=== PATIENT | female | born 1985 | race Caucasian/White ===

== ENCOUNTER 2018-07-30 22:13 | Emergency (ER) | payer OTHER ==
[2018-07-30 22:19] VITALS: BP 104/74; PULSE 84; TEMP 98; BMI 35.7
[2018-07-30] MEDS ORDERED: DIPHTH,PERTUSS(ACELL),TET 0.5 ML DISP.SYRIN IM ONE (22:29)
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
== END 2018-07-30 22:58 | disposition home or self-care (01) ==
LOC: JERFT 22:13
PROC: 3E0234Z Introduction of Serum, Toxoid and Vaccine into Muscle, Percutaneous Approach (ICD-10-PCS; principal; 2018-07-30)
DX: S60.472A Other superficial bite of right middle finger, initial encounter (principal); S60.474A Other superficial bite of right ring finger, initial encounter; W50.3XXA Accidental bite by another person, initial encounter; Y93.F9 Activity, other caregiving; Y92.198 Other place in other specified residential institution as the place of occurrence of the external cause; Y99.0 Civilian activity done for income or pay
CPT/HCPCS: 73140-TC-RT-FY; 90715; 99281-25

== ENCOUNTER 2019-08-06 13:48 | Day surgery (SDC) | payer OTHER ==
[2019-08-06 14:28] VITALS: BMI 36.6
[2019-08-06] MEDS ORDERED: SODIUM CHLORIDE 2,994 ML IV ONE (14:37)
[2019-08-06] MEDS ORDERED: ACETAMINOPHEN INJECTION 100 ML IVPB ONE ×2 (15:02→16:48)
[2019-08-06 15:09] LABS: BASO % 0.4 % (0-2.0); EOS % 0.2 % (0-4.5); HEMATOCRIT 29.6 % (32.4-45.2); HEMOGLOBIN 10.1 GM/dL (10.7-15.3); LYMPH % 10.4 % (8-40); MCH 30.2 pg (25.7-33.7); MCHC 34.3 g/dl (32.0-36.0); MEAN PLT VOLUME 9.1 fl (7.5-11.1); MONO % 4.2 % (3.8-10.2); NEUT % 84.8 % (42.8-82.8); PLATELET COUNT 239 K/MM3 (134-434); RBC 3.36 M/mm3 (3.60-5.2); RDW 12.6 % (11.6-15.6)
[2019-08-06 15:21] LABS: INR 1.18 (0.83-1.09)
[2019-08-06 15:21] LABS: EPI CELLS 13.7 /HPF (0-5/HPF); URINE APPEARANCE CLEAR; URINE BILIRUBIN NEGATIVE (NEGATIVE); URINE COLOR YELLOW; URINE GLUCOSE (UA) NEGATIVE (NEGATIVE); URINE KETONE 1+ (NEGATIVE); URINE LEUK ESTERASE NEGATIVE (NEGATIVE); URINE NITRITE NEGATIVE (NEGATIVE); URINE PROTEIN TRACE (NEGATIVE); URINE WBC 5 /hpf (0-5)
--- NOTE | 2019-08-06 15:21 | PDOC ---
Documentation entered by Cece Ramon SCRIBE, acting as scribe for Norma Vazquez MD. Norma Vazquez MD: This documentation has been prepared by the michelleeYenny Adrianna, SCRIBE, under my direction and personally reviewed by me in its entirety. I confirm that the documentation accurately reflects all work, treatment, procedures, and medical decision making performed by me. History of Present Illness - General Chief Complaint: SIRS, Suspected/Possible Stated Complaint: Pain History Source: Patient Exam Limitations: No Limitations - History of Present Illness Initial Comments: 33 y.o female, no PMH, presenting with vaginal bleeding and diffuse abdominal pain. Patient notes she has had her period since last week (typically lasts for 4-5 days, but has been going on for over a week), which was originally brown in color but is now dark red and heavy in duration, lasting longer than her usual cycle, still currently menstruating. Patient denies any vaginal odor, but notes urinary hesitancy (feels the urge to go but cannot produce urine). She notes she developed some light abdominal cramping last night, which became diffuse and unbearable today. Her pain is exacerbated with any movement, and notes she was only able to eat chocolate almonds today. Patient reports one episode of loose stool, nausea, and NBNB vomit. She endorses neck pain, dizziness, chills, and feeling dehydrated while in the ED. +sexually active. has 2 prior pregnancies and live births, no ectopics or PID/STD No sick contacts or travel. No new changes in medications. No suspicious food intake. Allergies: None Past Medical History/PSH: none Social history: Lives with family. No tobacco, ETOH or drug use. Meds: as documented in EMR Family history: noncontributory PMD: Dr. Sims HOOD FITTER: Dr Ashley Review of systems Constitutional: +Chills. +sweats. no fevers. No weakness HEENT:+Dizziness. no headache. No congestion. No visual/hearing disturbances. CVS: no cp or syncope. Resp: no sob. No cough. Gastrointestinal: +Diffuse abdominal pain and cramping +Nausea. +One episode of NBNB vomit. +1 episode of diarrhea. Genitourinary: +Urinary hesitancy. +Prolonged menstrual cycle, that is heavy and dark red in color. no hematuria. MUSCULOSKELETAL: +Neck pain. No joint pain and swelling. No back pain. SKIN: no redness or skin changes, no discharge, no rash. No wounds. Hematologic: no easy bruising/bleeding. NEUROLOGIC: No headache, dizziness, LOC or altered mental status. No weakness, numbness or tingling. Psych: no anxiety or depression Allergic/Immunologic: no allergies All other systems reviewed and negative, or as documented in HPI. Physical exam General: mild distress 2/2 pain. HEENT: NCAT, PERRL, EOMI, clear conjunctiva, anicteric, moist mucus membranes, clear oropharynx, no oral lesions.. Neck: neck supple, FROM Resp: CTAB, normal and even respirations, no respiratory distress CVS: RRR, no murmurs, 2+ peripheral pulses throughout, no peripheral edema Abdomen: +Suprapubic ttp. soft, +rebound +guarding. No CVAT. Back: nontender, normal inspection and ROM MSK: no edema, DURON x4, ROM intact. No clubbing or cyanosis. normal bulk and tone. Extremities: no calf tenderness Neuro: alert, oriented appropriately; no focal neurologic deficits Psych: Calm and cooperative Skin: +Diaphoretic. +Moist and cool to touch. +Faint ecchymosis on the abdomen ( secondary to Victoza shots for weight loss). skin pallor. 08/06/19 15:19 08/06/19 15:55 Past History - Past Medical History Allergies/Adverse Reactions: Allergies Allergy/AdvReac Type Severity Reaction Status Date / Time No Known Allergies Allergy Verified 08/06/19 14:24 Home Medications: Ambulatory Orders Liraglutide [Victoza -] 1.8 mg SQ DAILY@0700 08/06/19 Asthma: No Cancer: No Cardiac Disorders: No COPD: No Diabetes: No HTN: No Seizures: No Thyroid Disease: No - Surgical History Cholecystectomy: Yes - Immunization History Immunization Up to Date: Yes - Psycho Social/Smoking Cessation Hx Smoking History: Never smoked Have you smoked in the past 12 months: No Hx Alcohol Use: No Drug/Substance Use Hx: No Substance Use Type: None Hx Substance Use Treatment: No *Physical Exam - Vital Signs Last Vital Signs Temp Pulse Resp BP Pulse Ox 97.4 F L 70 20 71/51 L 100 08/06/19 14:15 08/06/19 14:20 08/06/19 14:20 08/06/19 14:20 08/06/19 14:20 Heart Score/ECG Review #1 ECG reviewed & interpreted by me at: 14:20 General ECG Interpretation: Sinus Rhythm, Normal Rate, Normal Intervals Compared to previous ECG there are: Previous ECG unavail ED Treatment Course - LABORATORY CBC & Chemistry Diagram: 08/06/19 15:00 08/06/19 14:34 - ADDITIONAL ORDERS Additional order review: Laboratory Results 08/06/19 08/06/19 15:00 14:19 POC Glucometer 110 Urine HCG, Qual Positive 08/06/19 08/06/19 15:00 14:19 RBC 3.36 L MCV 88.0 MCHC 34.3 RDW 12.6 D MPV 9.1 Neutrophils % 84.8 H Lymphocytes % 10.4 Monocytes % 4.2 Eosinophils % 0.2 Basophils % 0.4 POC Glucometer 110 Medical Decision Making - Critical Care Time Total Critical Care Time (minutes): 40 (hemodynamic collapse, hemoperitoneum, ruptured ectopic ) Critical Care Statement: The care of this patient involved high complexity decision making to prevent further life threatening deterioration of the patient 's condition and/or to evaluate & treat vital organ system(s) failure or risk of failure. - Medical Decision Making 08/06/19 15:29 Vital Signs Temp Pulse Resp BP Pulse Ox 97.4 F L 67 24 H 71/51 L 99 08/06/19 14:15 08/06/19 14:30 08/06/19 14:30 08/06/19 14:30 08/06/19 14:37 emergently seen on presentation VS reviewed, hypotensive 71/50s, unstable mentating no tachycardia concern for ectopic 2 PIVs placed, IVF prbc, o neg, 2 units transfusion emergently. consented for blood discussed risks and benefits, pt amenable to prbc transfusion, benefits outweigh risks. bedside FAST exam in all views obtained, see PACS - FF in RUQ/Morison's 1L, perisplenic and suprapubic. eccentric gestational sac, no def IUP seen ruptured ectopic until proven otherwise emergent call [phone] Collazo - needs to be taken to OR for ruptured ectopic 08/06/19 15:53 Discharge - Discharge Information Problems reviewed: Yes Clinical Impression/Diagnosis: Ruptured ectopic , Hemoperitoneum Condition: Critical - Admission Yes - Follow up/Referral - Patient Discharge Instructions - Post Discharge Activity
[2019-08-06] MEDS ORDERED: ACETAMINOPHEN 1000 MG/100 ML VIAL (NON FORMULARY) IVPB ONE (15:23)
[2019-08-06 15:36] LABS: ALBUMIN 3.5 g/dl (3.4-5.0); BILIRUBIN,TOTAL 0.7 mg/dL (0.2-1); BLOOD UREA NITROGEN 9.7 mg/dL (7-18); CALCIUM 7.7 mg/dL (8.5-10.1); CREATININE 0.6 mg/dL (0.55-1.3); POTASSIUM 3.6 mmol/L (3.5-5.1); TOT PROT 6.2 g/dl (6.4-8.2)
[2019-08-06] MEDS ORDERED: MIDAZOLAM HCL 2 MG/2 ML SINGLE DOSE VIAL ONE (15:40)
[2019-08-06] MEDS ORDERED: ROCURONIUM BROMIDE 50 MG/5 ML SYRINGE ONE (15:40)
[2019-08-06] MEDS ORDERED: PROPOFOL 20 ML ONE (15:40)
[2019-08-06] MEDS ORDERED: SUCCINYLCHOLINE CHLORIDE 200 MG/10 ML SYRINGE ONE ×2 (15:40→16:09)
[2019-08-06] MEDS ORDERED: EPHEDRINE SULFATE/0.9% NACL/PF 50 MG/10 ML SYRINGE NR ONE (15:40)
[2019-08-06 15:42] LABS: ACTIVATED PTT 32.1 SECONDS (25.2-36.5)
[2019-08-06] MEDS ORDERED: PROMETHAZINE HCL 25 MG/1 ML VIAL IVPB PRN (15:44)
[2019-08-06] MEDS ORDERED: ONDANSETRON 4 MG/2 ML VIAL IVPUSH PRN ×2 (15:44→17:38)
[2019-08-06] MEDS ORDERED: LACTATED RINGERS SOLUTION 1,000 ML IV SCH (15:45)
[2019-08-06] MEDS ORDERED: ETOMIDATE 20 MG/10 ML AMPUL IVPUSH ONE (15:50)
[2019-08-06] MEDS ORDERED: LIDOCAINE HCL/PF 2% SDV 5ML VIAL ONE (15:50)
[2019-08-06 15:55] LABS: HYALINE CASTS 1 /lpf (0-8)
[2019-08-06] MEDS ORDERED: ceFAZolin SODIUM 1 GM VIAL IVPB ONE (16:20)
[2019-08-06] MEDS ORDERED: ceFAZolin SODIUM 1 GM VIAL ONE (16:20)
[2019-08-06] MEDS ORDERED: DEXAMETHASONE SOD PHOSPHATE 4 MG/1 ML VIAL ONE (16:24)
[2019-08-06] MEDS ORDERED: GLYCOPYRROLATE 0.2 MG/1 ML VIAL ONE (17:06)
[2019-08-06] MEDS ORDERED: NEOSTIGMINE METHYLSULFATE 0.5 MG/ML - 10 ML MDV ONE (17:07)
[2019-08-06] MEDS ORDERED: KETOROLAC TROMETHAMINE 30 MG/1 ML VIAL ONE (17:13)
[2019-08-06] MEDS ORDERED: IBUPROFEN 600 MG TABLET (FP) PO PRN (17:38)
--- NOTE | 2019-08-06 17:50 | OP ---
Operative Note - Note: Operative Date: 08/06/19 Pre-Operative Diagnosis: ruptured ectopic , hypovolemic shock Operation: laparoscopy , LT salpingectomy Findings: approx. 1 litter of blood in abdomen, ruptured LT tubal ectopic . Post-Operative Diagnosis: Same as Pre-op Surgeon: Geovany Barksdale Form Tamper: Ben Mosqueda Anesthesiologist/VAT HOUSE LABORER: Cortez Gonzalez Anesthesia: General Specimens Removed: Lt fallopian tube Drains & Tubes with Location: johnson Drains, Volume Out (mls): 230 Blood Volume Replaced (mls): 2 Fluid Volume Replaced (mls): 400 Operative Report Dictated: Yes
--- NOTE | 2019-08-06 18:22 | HP ---
Past Medical History - Primary Care Physician PCP:: Geovany Barksdale - Admission Chief Complaint: pelvic abdominal pain, dizziness History of Present Illness: 33 yo f with 2 previous lmp last month with hx of vaginal spotting and sever low abdominal and shoulder pain , HCG positve , sono large amt of pelvic and abdominal blood , admitted for surgical tx of ectopic History Source: Patient Limitations to Obtaining History: No Limitations - Past Medical History ...: 2 ...Para: 2 - Past Surgical History Past Surgical History: Yes: Cholecystectomy (laparoscopy) Hx Myomectomy: No Hx Transabdominal Cerclage: No - Smoking History Smoking history: Never smoked Have you smoked in the past 12 months: No - Alcohol/Substance Use Hx Alcohol Use: No History of Substance Use: reports: None - Social History ADL: Independent History of Recent Travel: No Home Medications - Allergies Allergies/Adverse Reactions: Allergies Allergy/AdvReac Type Severity Reaction Status Date / Time No Known Allergies Allergy Verified 08/06/19 14:24 - Home Medications Home Medications: Ambulatory Orders Liraglutide [Victoza -] 1.8 mg SQ DAILY@0700 08/06/19 Review of Systems - Review of Systems Constitutional: reports: Malaise, Weakness Eyes: reports: No Symptoms HENT: reports: No Symptoms Neck: reports: No Symptoms Cardiovascular: reports: No Symptoms Respiratory: reports: No Symptoms Gastrointestinal: reports: Abdominal Pain, Nausea, Vomiting Blood Genitourinary: reports: Vaginal Bleeding Breasts: reports: No Symptoms Reported Musculoskeletal: reports: No Symptoms Integumentary: reports: No Symptoms Neurological: reports: No Symptoms Endocrine: reports: No Symptoms Hematology/Lymphatic: reports: No Symptoms Psychiatric: reports: No Symptoms Physical Exam-AIR/OCEAN EXPORT CLERK Vital Signs: Vital Signs Temperature 97.6 F 08/06/19 17:35 Pulse Rate 50 L 08/06/19 18:05 Respiratory Rate 16 08/06/19 18:05 Blood Pressure 97/50 L 08/06/19 18:05 O2 Sat by Pulse Oximetry (%) 100 08/06/19 18:05 Constitutional: Yes: Diaphoresis, Moderate Distress, Obese, Pallor Eyes: Yes: WNL HENT: Yes: WNL Neck: Yes: WNL Cardiovascular: Yes: WNL Gastrointestinal: Yes: Abdomen, Obese, Distention, Tenderness, Tenderness, Rebound ...Rectal Exam: Yes: WNL Renal/: Yes: WNL External Genitalia: Yes: Normal Vaginal Exam: Yes: Discharge (blood) Cervix: Yes: Normal Uterus: Yes: Normal, Tender Adnexa: Tender: Left, Right Breast(s): Yes: WNL Musculoskeletal: Yes: WNL Extremities: Yes: WNL Edema: No Integumentary: Yes: WNL Neurological: Yes: WNL ...Motor Strength: WNL Psychiatric: Yes: WNL Labs: CBC, BMP 08/06/19 15:00 08/06/19 14:34 Problem List - Problem (1) Hemoperitoneum Code(s): K66.1 - HEMOPERITONEUM (2) Ruptured ectopic Code(s): O00.90 - UNSPECIFIED ECTOPIC WITHOUT INTRAUTERINE Assessment/Plan admit, blood transfusion ,iv hydration laparoscopy salpingectomy discussed risks associated with procedure discussed , risks of infection, bleeding, injury to surrounding tissue , post op complication , ulternatives discussed . agrred to have procedure
[2019-08-06] MEDS: ELECTROLYTE-148 SOLN 1,000 ML IV SCH (19:05)
[2019-08-06] MEDS: oxyCODONE HCL 5 MG TABLET PO PRN (20:10)
--- NOTE | 2019-08-06 21:22 | EKG ---
Test Reason : Blood Pressure : / mmHG Vent. Rate : 062 BPM Atrial Rate : 062 BPM P-R Int : 142 ms QRS Dur : 080 ms QT Int : 424 ms P-R-T Axes : 000 087 075 degrees QTc Int : 430 ms NORMAL SINUS RHYTHM NORMAL ECG NO PREVIOUS ECGS AVAILABLE Confirmed by ALISSA SCHAEFER MD ([id number]) on 08/06/2019 9:22:11 PM Referred By: Confirmed By:ALISSA SCHAEFER MD
[2019-08-07] MEDS: oxyCODONE HCL 5 MG TABLET PO PRN (00:09)
--- NOTE | 2019-08-07 00:33 | OP ---
DATE OF OPERATION: 08/06/2019 PREOPERATIVE DIAGNOSIS: Ruptured ectopic . POSTOPERATIVE DIAGNOSIS: Ruptured left tubal ectopic and hemoperitoneum. SURGEON: Jen Barksdale MD PERIODONTAL ASSISTANT: KEV Andrews ANESTHESIA: General anesthesia. ANESTHESIOLOGIST: Gris Gonzalez MD ESTIMATED BLOOD LOSS: 50 mL intraoperatively. FINDINGS: Approximately 1 L of fluid in the abdomen with blood clots, ruptured left tubal ectopic . DESCRIPTION OF PROCEDURE: The patient was taken to the operating room and adequate general anesthesia was induced while in the supine position. Examination under anesthesia revealed external genitalia to be normal. Cervix was clean and no lesion with a small amount of bleeding from the os. Uterus was normal size, soft. Adnexa had no masses palpable. With a weighted speculum in the vagina, anterior lip of the cervix was grasped with a single-toothed tenaculum and Hulka was introduced into the uterine cavity for manipulation. Then, the patient was prepped and draped for a pelviscopy. A small infraumbilical skin incision was made. Veress needle was introduced. Pneumoperitoneum was established and then the 5-mm trocar was introduced through the umbilical area. Under direct vision, a 10-mm trocar was placed through the left hypogastric area and a 5-mm trocar through the right hypogastric area. Visualization of the pelvic organs showed large amount of blood and blood clots in the pelvis, upper abdomen, and both gutters. These blood clots and blood products were suctioned and the pelvis was irrigated. There was ruptured left tubal noted with bleeding from the fimbriated end. Then the left tube was grasped with a grasper and with LigaSure bipolar cautery, the mesosalpinx was cauterized and the tube was removed. The Endo Catch was introduced through the 10-mm trocar and the tube and the products were removed. The pelvis cavity was several times irrigated. No active bleeding was seen. All of the blood clots were suctioned. The abdomen was emptied of all of the gasses. The left hypogastric fascia was closed with interrupted sutures of 0 Biosyn. The skin was closed with 4-0 Biosyn interrupted sutures. The umbilical area also was closed with 2-0 Biosyn suture. The skin was closed with 4-0 Biosyn. The right hypogastric was closed with 4-0 Biosyn interrupted suture. Patient tolerated the procedure well and left the OR in good condition. JEN BARKSDALE M.D. [id number]
[2019-08-07] MEDS: IBUPROFEN 800 MG/8 ML IJ IVPB PRN ×2 (01:27→07:54)
[2019-08-07] MEDS: ELECTROLYTE-148 SOLN 1,000 ML IV SCH (05:13)
--- NOTE | 2019-08-07 08:32 | PN ---
Progress Note (short form) - Note Progress Note: pod 1 s/p LT salpingectomy. doing well, no c/o , voids ok, passing gas, no dizziness CBC, BMP 08/06/19 14:34 Last Vital Signs Temp Pulse Resp BP Pulse Ox 98.7 F 100 H 20 96/48 L 100 08/07/19 04:37 08/07/19 04:37 08/07/19 04:37 08/07/19 04:37 08/06/19 19:30 abdomen soft, no distension, no cva incision dry, clean no calf tenderness plan cbc , hcg if cbc normal D/C home today ,follow up office 2 weeks Problem List - Problems (1) Hemoperitoneum Code(s): K66.1 - HEMOPERITONEUM (2) Ruptured ectopic Code(s): O00.90 - UNSPECIFIED ECTOPIC WITHOUT INTRAUTERINE
[2019-08-07 08:33] LABS: HEMATOCRIT 28.9 % (32.4-45.2); HEMOGLOBIN 10.2 GM/dL (10.7-15.3); MCH 30.6 pg (25.7-33.7); MCHC 35.4 g/dl (32.0-36.0); MEAN CELL VOLUME 86.5 fl (80-96); MEAN PLT VOLUME 8.8 fl (7.5-11.1); PLATELET COUNT 185 K/MM3 (134-434); RBC 3.34 M/mm3 (3.60-5.2); RDW 13.2 % (11.6-15.6); WHITE BLOOD COUNT 13.2 K/mm3 (4.0-10.0)
--- NOTE | 2019-08-07 10:39 | PN ---
Progress Note (short form) - Note Progress Note: Anesthesia postop note 33 y/o F s/p GA for laparoscopy, left salpingectomy POD#1, vss, aaox3, no complaints. No anesthesia complications.
[2019-08-07 11:05] VITALS: BP 116/42; PULSE 84; TEMP 98.1
== END 2019-08-07 13:18 | disposition home or self-care (01) ==
LOC: SUPCPDRO 13:48 → JER 13:48 → JASUSAT 15:53 → J6S 20:01 → JASUSAT 08-07 13:18
PROVIDERS: ATTEND Obstetrics & Gynecology
PROC: 0UT64ZZ Resection of Left Fallopian Tube, Percutaneous Endoscopic Approach (ICD-10-PCS; 2019-08-06)
PROC: 10T24ZZ Resection of Products of Conception, Ectopic, Percutaneous Endoscopic Approach (ICD-10-PCS; principal; 2019-08-06 16:00)
DX: O00.102 Left tubal pregnancy without intrauterine pregnancy (principal); K66.1 Hemoperitoneum
CPT/HCPCS: 36415; 36511; 76604; 76705-TC; 80053; 81003; 82962; 83605; 84702; 84703; 85025; 85027; 85610; 85730; 86850; 86900; 86901; 86922; 87040; 87076; 87086; 93005; 93010; 93308; 94760; 99285-25; J0131; J7030; P9038; P9058